=== PATIENT | male | born 1990 | race African-American/Black ===

== ENCOUNTER 2016-07-02 00:18 | Emergency (ER) | payer SELFPAY ==
[2016-07-02 00:41] VITALS: BP 118/78
[2016-07-02] MEDS ORDERED: ACETAMINOPHEN 325 MG TABLET PO ONE (00:42)
[2016-07-02] MEDS ORDERED: PENICILLIN V POTASSIUM 500 MG TABLET PO ONE (01:06)
[2016-07-02] MEDS ORDERED: HYDROCODONE/ACETAMINOPHEN 5-325 MG 6 TAB/DSPK PO PRN (01:07)
--- NOTE | 2016-07-02 01:08 | ER Document Report ---
HPI - HPI Patient complains to provider of: dental pain Onset: Yesterday Quality of pain: Achy, Throbbing Severity: Severe Pain Level: 5 Context: Patient presents to the emergency department with complaints of dental pain that started yesterday. He reports he thinks a broken tooth a couple months ago. He denies other symptoms such as fever vomiting diarrhea. Patient is speaking in clear voice no facial swelling. Associated Symptoms: None Exacerbated by: Denies Relieved by: Denies Similar symptoms previously: No Recently seen / treated by doctor: No - DERM Skin Color: Normal Past Medical History - General Information source: Patient - Social History Smoking Status: Unknown if Ever Smoked Cigarette use (# per day): No Frequency of alcohol use: None Drug Abuse: None Occupation: student Family History: None Patient has suicidal ideation: No Patient has homicidal ideation: No - Medical History Medical History: Negative Renal/ Medical History: Denies: Hx Peritoneal Dialysis Surgical Hx: Negative Vertical Provider Document - CONSTITUTIONAL Agree With Documented VS: Yes Exam Limitations: No Limitations General Appearance: WD/WN, Mild Distress - winces when tooth palpated - INFECTION CONTROL TRAVEL OUTSIDE OF THE [place] IN LAST 30 DAYS: No - HEENT HEENT: Atraumatic, Normocephalic. negative: Pharyngeal Erythema, Tympanic Membrane Red Mouth Diagram: 1 - c/o pain, No swelling, No peritonsillar abscess good clear voice no trismus , no facial swelling, opens mouth wide - NECK Neck: Normal Inspection, Supple. negative: Lymphadenopathy-Left, Lymphadenopathy-Right - RESPIRATORY Respiratory: Breath Sounds Normal O2 Sat by Pulse Oximetry: 97 - MUSCULOSKELETAL/EXTREMETIES Musculoskeletal/Extremeties: MARK RENE - NEURO Level of Consciousness: Awake, Alert, Appropriate Motor/Sensory: No Motor Deficit - DERM Integumentary: Warm, Dry Course - Vital Signs Vital signs: Temp Pulse Resp BP Pulse Ox 97.9 F 59 L 18 118/78 97 07/02/16 00:39 07/02/16 00:39 07/02/16 00:39 07/02/16 00:39 07/02/16 00:39 Discharge - Discharge Clinical Impression: Pain, dental Condition: Stable Disposition: HOME, SELF-CARE Instructions: [facility]aring [facility], Oral Narcotic Medication ([facility]), Toothache ([facility]), Penicillin V K ([facility]) Additional Instructions: *You have been evaluated for dental pain *Take medications as prescribed *Follow up with a dentist next week *Return to ED for worsening condition, changes, needs, swelling, redness, increased pain Prescriptions: Penicillin V Potassium [Penicillin Vk 500 mg Tablet] 500 mg PO BID #20 tablet
== END 2016-07-02 01:20 | disposition home or self-care (01) ==
LOC: ER 00:18
DX: K08.89 Other specified disorders of teeth and supporting structures (principal)
CPT/HCPCS: 99282

== ENCOUNTER 2016-11-19 19:15 | Emergency (ER) | payer SELFPAY | END 2016-11-19 20:35 | disposition home or self-care (01) | LOC: ER 19:15 | DX: K04.7 Periapical abscess without sinus (principal) ==

== ENCOUNTER 2016-11-19 20:26 | Emergency (ER) | payer SELFPAY ==
[2016-11-19 20:30] VITALS: BP 123/78
--- NOTE | 2016-11-19 20:36 | ER Document Report ---
ED Oral Problem - General Chief Complaint: Mouth Problem Stated Complaint: SEVERE MOUTH PAIN Time Seen by Provider: 11/19/16 20:31 Mode of Arrival: Ambulatory Information source: Patient TRAVEL OUTSIDE OF THE [place] IN LAST 30 DAYS: No - HPI Patient complains to provider of: Toothache Onset: This morning Quality of pain: Achy Severity: Moderate Pain Level: 3 Associated symptoms: Toothache. denies: Chills, Cough, Decreased appetite, Dental decay, Difficulty speaking, Drainage, Drooling, Earache, Facial pain, Fever, Headache, Jaw pain, Short of breath, Sweaty, Tongue swelling, Unable to swallow, White patches in mouth Worsened by: Other - touch Relieved by: Nothing Similar symptoms previously: No Recently seen / treated by doctor/dentist: No Notes: Patient arrives with complaints of pain to the right upper gumline. He states that his tooth was somewhat sore and he feels a bump back there. No fever. No difficulty breathing or swallowing. No nausea, vomiting, diarrhea. No chest pain or shortness of breath. No abdominal pain. He denies any rashes. No facial swelling. He has no other complaints at this time. - Related Data Allergies/Adverse Reactions: No Known Allergies Allergy (Unverified 07/02/16 00:41) Past Medical History - Social History Smoking Status: Unknown if Ever Smoked Family History: None Renal/ Medical History: Denies: Hx Peritoneal Dialysis Review of Systems - Review of Systems -: Yes All other systems reviewed and negative Physical Exam - Vital signs Vitals: Temp Pulse Resp BP Pulse Ox 99.1 F 55 L 14 123/78 100 11/19/16 20:27 11/19/16 20:27 11/19/16 20:27 11/19/16 20:27 11/19/16 20:27 - Notes Notes: GENERAL: alert, cooperative, nontoxic, no distress. HEAD: normocephalic, atraumatic EYES: conjunctiva pink without discharge, no external redness or swelling. EARS: no external swelling, no external redness NOSE: atraumatic, no external swelling MOUTH/THROAT: mucous membranes moist and pink. Patient is noted to have a very small abscess to the right upper gumline at approximately tooth #2. There is no facial swelling. There is no significant fluctuance. There is no palatal swelling. Trismus or drooling. NECK: soft, supple, full range of motion, no meningismus. CHEST: no distress, lungs clear and equal throughout. No wheezing, rales, rhonchi. CARDIAC: regular rate and rhythm, no murmur, normal capillary refill, normal pulses. BACK: full range of motion, no CVA tenderness. EXTREMITIES: full range of motion of all extremities. No redness, no swelling. NEURO: alert and oriented 3, no focal deficits, full range of motion of all extremities. PYSCH: appropriate mood, affect. Patient is cooperative. SKIN: pink, warm, dry, no rash. Course - Re-evaluation Re-evalutation: 11/19/16 20:33 Patient is nontoxic appearing with stable vitals. He is noted to have a very small abscess to the gum near tooth #2. No significant fluctuance noted at this time. There is no distress. The patient will be discharged home with pen VK, Ultram, Naprosyn. Follow-up with the dentist at the next available appointment. Follow-up sooner for increased pain, fever, swelling, difficulty breathing or swallowing, or any further concerns. The patient is noted to have elevated blood pressure during today's emergency department visit. The patient was informed of this finding. The patient was instructed that this may be related to pre-hypertension and requires further evaluation with a primary care provider. The patient has no hypertensive symptoms at this time. - Vital Signs Vital signs: Temp Pulse Resp BP Pulse Ox 99.1 F 55 L 14 123/78 100 11/19/16 20:27 11/19/16 20:27 11/19/16 20:27 11/19/16 20:27 11/19/16 20:27 Discharge - Discharge Clinical Impression: Dental abscess Condition: Stable Disposition: HOME, SELF-CARE Instructions: Dentist, Dental Infection or Abscess ([facility]) Additional Instructions: Take medications as prescribed. Apply warm compresses to sore area. Follow-up with a dentist at the next available appointment. Follow-up sooner for increased pain, fever, swelling, difficulty breathing or swallowing, or any further concerns. Your blood pressure was elevated during today's visit. Have this rechecked with your doctor. The medication you were prescribed today may cause drowsiness. Do not drive or operate heavy machinery while taking this medication. Prescriptions: Naproxen 500 mg PO BID #20 tablet Penicillin V Potassium [Penicillin Vk 500 mg Tablet] 500 mg PO QID #28 tablet Tramadol HCl [Ultram] 50 mg PO TID PRN #10 tablet PRN Reason: Forms: Elevated Blood Pressure Referrals: [facility] [Provider Group] - Follow up as needed
[2016-11-19] MEDS ORDERED: TRAMADOL HCL 50 MG TABLET PO ONE (20:41)
== END 2016-11-19 20:51 | disposition home or self-care (01) ==
LOC: ER 20:26
DX: K04.7 Periapical abscess without sinus (principal); R03.0 Elevated blood-pressure reading, without diagnosis of hypertension
CPT/HCPCS: 99282

== ENCOUNTER 2017-10-22 15:32 | Emergency (ER) | payer BC ==
--- NOTE | 2017-10-22 16:54 | ER Document Report ---
ED General - General Chief Complaint: Cough Stated Complaint: COUGH/CHEST PAIN Time Seen by Provider: 10/22/17 16:08 TRAVEL OUTSIDE OF THE [place] IN LAST 30 DAYS: No - HPI Notes: 27-year-old male presents with chief complaints. Patient describes the pain and swelling in his right maxillary canine. Ongoing over the last week. Concerned about an abscess. Also complains of 3 to have 4 weeks of cough. No fever, runny nose congestion. Nonproductive, dry. No recent travel, no unplanned weight loss, no constitutional symptoms except as described. No other modifying factors, no other associated symptoms, no other provocative or palliative factors. - Related Data Allergies/Adverse Reactions: No Known Allergies Allergy (Verified 10/22/17 15:33) Past Medical History - Social History Smoking Status: Never Smoker Family History: None Patient has suicidal ideation: No Patient has homicidal ideation: No - Medical History Medical History: Negative Renal/ Medical History: Denies: Hx Peritoneal Dialysis Past Surgical History: Reports: Hx Tonsillectomy Review of Systems - Review of Systems Notes: Review of systems as in the history of present illness, otherwise negative x 10 systems. Physical Exam - Vital signs Vitals: Temp Pulse Resp BP Pulse Ox 98.7 F 58 L 14 134/82 H 99 10/22/17 15:42 10/22/17 15:42 10/22/17 15:42 10/22/17 15:42 10/22/17 15:42 - Notes Notes: General: Well developed . HEENT: Normocephalic, atraumatic. Pupils equal round reactive to light. No JVD. Mild gingival fullness about the right maxillary canine, slight erythema Chest: No trauma. Respiratory: Good air exchange, normal excursion. Cardiac: Regular rhythm. No murmurs or gallops. Abdomen: Soft, benign. Nondistended. Nontender. Back: No asymmetry or gross abnormality. Motor: Grossly normal power and tone. Neurologic: Alert, nonfocal. Cranial nerves II-12 are intact. Sensation intact. Vascular: Well perfused. Normal peripheral pulses. Skin: No petechiae or purpura. Course - Re-evaluation Re-evalutation: 10/22/17 16:53 P.m. from a pulmonary perspective. Will obtain x-ray given the prolonged nature of the cough to rule out underlying pneumonia or parenchymal abnormality. No use of MARICARMEN inhibitors or suspicion for angioedema. We will treat the infection with oral antibiotics in the absence of pneumonia. 10/22/17 16:57 Plain films are unremarkable, discharged home as discussed - Vital Signs Vital signs: Temp Pulse Resp BP Pulse Ox 98.7 F 58 L 14 134/82 H 99 10/22/17 15:42 10/22/17 15:42 10/22/17 15:42 10/22/17 15:42 10/22/17 15:42 Discharge - Discharge Clinical Impression: Dental abscess, Cough Condition: Good Disposition: HOME, SELF-CARE Instructions: Cough Suppressant & Expectorant Medications, Dental Infection or Abscess ([facility]) Prescriptions: Benzonatate [Tessalon Perles 100 mg Capsule] 100 mg PO Q8HP PRN #40 capsule PRN Reason: Amoxicillin 500 mg PO Q8 #30 capsule
--- NOTE | 2017-10-22 16:59 | RADIOLOGY REPORT (SQ) ---
EXAM DESCRIPTION: CHEST 2 VIEWS COMPLETED DATE/TIME: 10/22/2017 4:51 pm REASON FOR STUDY: persistent cough COMPARISON: 01/28/2008. EXAM PARAMETERS: NUMBER OF VIEWS: two views TECHNIQUE: Digital Frontal and Lateral radiographic views of the chest acquired. RADIATION DOSE: NA LIMITATIONS: none FINDINGS: LUNGS AND PLEURA: No opacities, masses or pneumothorax. No pleural effusion. MEDIASTINUM AND HILAR STRUCTURES: No masses or contour abnormalities. HEART AND VASCULAR STRUCTURES: Heart normal size. No evidence for failure. BONES: No acute findings. HARDWARE: None in the chest. OTHER: No other significant finding. IMPRESSION: NO ACUTE RADIOGRAPHIC FINDING IN THE CHEST. TECHNICAL DOCUMENTATION: JOB ID: [id number] [employer]- All Rights Reserved Reading location - IP/workstation name: [email or web address]
[2017-10-22 17:23] VITALS: BP 135/80
== END 2017-10-22 17:21 | disposition home or self-care (01) ==
LOC: ER 15:32
DX: R05 Cough (principal); K04.7 Periapical abscess without sinus
CPT/HCPCS: 71046; 99283